=== PATIENT | female | born 1950 | race Caucasian/White ===

== ENCOUNTER 2016-07-17 05:25 | Inpatient (IN) | payer MEDICARE, OTHER ==
[~2016-07-17] VITALS: Ht 154.9 cm; Wt 93.3 kg
[~2016-07-17 05:25] MED LIST: ALPRAZOLAM0.5 MG PO; ASPIR-LOW81 MG PO; ASPIRIN E.C. 8181 MG PO; CHLORESTEROL MED; HCTZ 25MG25 MG PO; LIPITOR40 MG PO; LISINOPRIL/HCTZ1 TA2 PO; LISINOPRIL20 MG PO; MELATONIN 0.3MG; MELATONIN 0.3MG PO; NEXIUM40 MG PO; PHENERGAN 25 TA25 MG PO; PRAVASTATIN40 MG PO; PRINIVIL20 MG PO; PROTONIX 40MG T40 MG PO; WELCHOL625 MG PO; ZOCOR40 MG PO; ZOFRAN4 MG PO
[2016-07-17] MEDS ORDERED: NORVASC 5MG5 MG/TAB PO (05:35)
[2016-07-17] MEDS ORDERED: PROTONIX 40MG T40 MG PO (05:36)
[2016-07-17 05:53] LABS: BASO # 0.1 (0.0-0.2); BASO % 0.5 % (0.0-2.0); EOS # 0.1 (0.0-0.7); EOS % 0.7 % (0-4.0); GRAN % 86.8 % (42.2-75.2); HEMATOCRIT 41.2 % (37.0-47.0); HEMOGLOBIN 13.5 g/dl (12.5-16.0); LYMPH # 1.1 (1.2-3.4); LYMPH % 6.8 % (20.0-51.0); MEAN CELL VOLUME 84 fl (80.0-100.0); MEAN CORPUSCULAR HEMOGLOBIN 28 pg (27.0-31.0); MEAN CORPUSCULAR HGB CONC 33 g/dl (33.0-37.0); MEAN PLATELET VOLUME 9.3 fl (7.4-10.4); MONO # 0.8 (0.1-0.6); MONO % 4.8 % (1.7-9.3); PLATELET COUNT 285 K/mm3 (130-400); RED BLOOD COUNT 4.88 M/mm3 (4.10-5.30); WHITE BLOOD COUNT 16.1 K/mm3 (4.8-10.8)
[2016-07-17 06:03] LABS: CALCIUM 10.6 mg/dL (8.4-10.2); CREATININE, serum 0.9 mg/dL (0.52-1.25); POTASSIUM 3.9 mmol/L (3.4-5.0)
[2016-07-17 07:12] LABS: PH 6 (5-8); SQUAMOUS EPITHELIAL 0-2 /hpf; URINE APPEARANCE Clear; URINE BACTERIA None Seen /hpf; URINE BILIRUBIN Negative (NEGATIVE); URINE BLOOD Negative (NEGATIVE); URINE COLOR Yellow; URINE GLUCOSE Negative (NEGATIVE); URINE KETONE Negative (NEGATIVE); URINE RBC 0-2 /hpf; URINE UROBILINOGEN Negative (NEGATIVE); URINE WBC 0-2 /hpf
[2016-07-17 08:45] VITALS: BP 108/56; PULSE 84; TEMP 98.4
[2016-07-17 11:43] VITALS: BP 118/51; PULSE 91; TEMP 97.9
[2016-07-17 16:00] VITALS: BP 137/60; PULSE 92; TEMP 98.5
[2016-07-17 20:07] VITALS: BP 115/50; PULSE 86; TEMP 98.1
[2016-07-18 00:47] VITALS: BP 105/50; PULSE 92; TEMP 98.1
[2016-07-18 04:39] VITALS: BP 110/48; PULSE 91; TEMP 99.5
[2016-07-18 07:44] VITALS: BP 116/38; PULSE 86; TEMP 98.5
[2016-07-18 08:34] LABS: BASO % 0.2 % (0.0-2.0); EOS % 0.3 % (0-4.0); GRAN # 7.4 (1.4-6.5); GRAN % 83.4 % (42.2-75.2); LYMPH # 0.8 (1.2-3.4); LYMPH % 9.4 % (20.0-51.0); MEAN CELL VOLUME 85 fl (80.0-100.0); MEAN CORPUSCULAR HGB CONC 32 g/dl (33.0-37.0); MEAN PLATELET VOLUME 9.6 fl (7.4-10.4); MONO # 0.5 (0.1-0.6); MONO % 6.1 % (1.7-9.3); PLATELET COUNT 217 K/mm3 (130-400); RED BLOOD COUNT 3.92 M/mm3 (4.10-5.30); REDCELL DISTRIBUTION WIDTH-CV 14.3 % (11.5-14.5); WHITE BLOOD COUNT 8.8 K/mm3 (4.8-10.8)
[2016-07-18 08:37] LABS: HEMATOCRIT 33.3 % (37.0-47.0); HEMOGLOBIN 10.8 g/dl (12.5-16.0); MEAN CORPUSCULAR HEMOGLOBIN 28 pg (27.0-31.0)
[2016-07-18 13:52] VITALS: BP 123/45; PULSE 78; TEMP 98.3
[2016-07-18 16:08] VITALS: BP 126/37; PULSE 77; TEMP 98.2
[2016-07-18 19:58] VITALS: BP 108/48; PULSE 88; TEMP 99.6
[2016-07-19 00:16] VITALS: BP 109/41; PULSE 80; TEMP 99.7
[2016-07-19 03:11] VITALS: BP 105/81; PULSE 88; TEMP 99.3
[2016-07-19 07:26] VITALS: BP 127/62; PULSE 86; TEMP 98.2
[2016-07-19 11:35] VITALS: BP 132/49; PULSE 84; TEMP 98.5
[2016-07-19] MEDS ORDERED: LEVAQUIN 750MG750 M1 PO (14:07)
[2016-07-19] MEDS ORDERED: FLAGYL500 MG PO (14:08)
[2016-07-19 16:09] VITALS: BP 137/55; PULSE 72; TEMP 98.6
== END 2016-07-19 18:26 | disposition home or self-care (01) | DRG 872 ==
LOC: COL.ER 05:25 → MEDICAL 07:28
PROVIDERS: Emergency Medicine; Physician Assistant
DX: A41.9 Sepsis, unspecified organism (principal); K57.32 Diverticulitis of large intestine without perforation or abscess without bleeding; I10 Essential (primary) hypertension; F41.9 Anxiety disorder, unspecified; K21.9 Gastro-esophageal reflux disease without esophagitis; E78.5 Hyperlipidemia, unspecified; Z87.891 Personal history of nicotine dependence
CPT/HCPCS: 99223-AI; 99232-AI; 99239; J1650; J1956; J2060; J2270; J2405; J2765; J7030; Q9967

== ENCOUNTER → 2016-12-08 | Emergency (ER) | payer MEDICARE, OTHER ==
[~2016-12-08] VITALS: Ht 154.9 cm; Wt 87.7 kg
[~2016-12-08] MED LIST changes: +FLAGYL500 MG PO; +LEVAQUIN 750MG750 M1 PO; +NORVASC 5MG5 MG/TAB PO
[2016-12-08 20:28] VITALS: TEMP 98.3
[2016-12-08 21:53] VITALS: BP 122/58; PULSE 80
== END ==
LOC: COL.ER 20:23
DX: R60.0 Localized edema (principal); S70.12XA Contusion of left thigh, initial encounter; Z96.652 Presence of left artificial knee joint; Z79.01 Long term (current) use of anticoagulants; E78.5 Hyperlipidemia, unspecified; I10 Essential (primary) hypertension

== ENCOUNTER 2017-01-28 05:23 | Day surgery (SDC) | payer MEDICARE, OTHER ==
[~2017-01-28] VITALS: Ht 154.9 cm; Wt 90.0 kg
[~2017-01-28 05:23] MED LIST changes: +PRAVACHOL 40MG40 MG PO; -PRAVASTATIN40 MG PO
[2017-01-28 06:26] VITALS: BP 130/73; PULSE 93; TEMP 98
[2017-01-28] MEDS ORDERED: HCTZ 25MG TAB25 MG PO (06:34)
[2017-01-28] MEDS ORDERED: STOOL SOFTENER100 M2 PO (06:37)
[2017-01-28 07:35] VITALS: BP 145/60; PULSE 90; TEMP 97.4
[2017-01-28 07:50] VITALS: BP 143/64; PULSE 75
[2017-01-28 08:05] VITALS: BP 134/61; PULSE 66
== END 2017-01-28 09:00 | disposition home or self-care (01) ==
LOC: SDCO 05:23
DX: M24.662 Ankylosis, left knee (principal); Z96.652 Presence of left artificial knee joint; Z47.1 Aftercare following joint replacement surgery; I45.10 Unspecified right bundle-branch block; I48.91 Unspecified atrial fibrillation; I10 Essential (primary) hypertension; Z96.651 Presence of right artificial knee joint; Z87.891 Personal history of nicotine dependence; G47.33 Obstructive sleep apnea (adult) (pediatric); K21.9 Gastro-esophageal reflux disease without esophagitis; Z88.6 Allergy status to analgesic agent; Z88.5 Allergy status to narcotic agent; Z88.8 Allergy status to other drugs, medicaments and biological substances; E78.5 Hyperlipidemia, unspecified; E78.00 Pure hypercholesterolemia, unspecified; I45.2 Bifascicular block
CPT/HCPCS: J2704; J3010; J7120

== ENCOUNTER → 2018-04-03 | Outpatient (CLI) | payer MEDICARE, OTHER ==
[~2018-04-03] MED LIST changes: +HCTZ 25MG TAB25 MG PO; +STOOL SOFTENER100 M2 PO
== END ==
LOC: MC.RAD 12:50
DX: Z12.31 Encounter for screening mammogram for malignant neoplasm of breast (principal); Z78.0 Asymptomatic menopausal state; N64.89 Other specified disorders of breast

== ENCOUNTER → 2018-04-10 | Outpatient (CLI) | payer MEDICARE, OTHER | LOC: MC.RAD 13:00 | DX: N60.02 Solitary cyst of left breast (principal); N64.89 Other specified disorders of breast; Z78.0 Asymptomatic menopausal state | CPT/HCPCS: G0279 ==

== ENCOUNTER 2018-04-30 09:36 | Emergency (ER) | payer MEDICARE, OTHER ==
[~2018-04-30] VITALS: Ht 154.9 cm; Wt 101.8 kg
[2018-04-30 09:41] VITALS: TEMP 98.8
[2018-04-30] MEDS ORDERED: SYNTHROID0.05 MG/TA PO (09:58)
[2018-04-30 10:33] LABS: BASO # 0.1 (0.0-0.2); BASO % 0.5 % (0.0-2.0); EOS # 0.1 (0.0-0.7); EOS % 1.1 % (0-4.0); GRAN # 9.8 (1.4-6.5); GRAN % 80.6 % (42.2-75.2); HEMATOCRIT 38.4 % (37.0-47.0); HEMOGLOBIN 12.8 g/dl (12.5-16.0); LYMPH # 1.3 (1.2-3.4); LYMPH % 10.7 % (20.0-51.0); MEAN CELL VOLUME 85 fl (80.0-100.0); MEAN CORPUSCULAR HEMOGLOBIN 28 pg (27.0-31.0); MEAN CORPUSCULAR HGB CONC 33 g/dl (33.0-37.0); MEAN PLATELET VOLUME 8.6 fl (7.4-10.4); MONO # 0.8 (0.1-0.6); MONO % 6.8 % (1.7-9.3); PLATELET COUNT 278 K/mm3 (130-400); RED BLOOD COUNT 4.52 M/mm3 (4.10-5.30); REDCELL DISTRIBUTION WIDTH-CV 14.1 % (11.5-14.5)
[2018-04-30 11:00] LABS: ALBUMIN 4.2 gm/dL (3.5-5.0); BILIRUBIN,TOTAL 0.7 mg/dL (0.0-1.0); C-REACTIVE PROTEIN 5.2 mg/dL (0.0-0.9); CALCIUM 9.6 mg/dL (8.4-10.2); CREATININE, serum 0.81 mg/dL (0.52-1.25); POTASSIUM 3.8 mmol/L (3.4-5.0); TOTAL PROTEIN 7.9 gm/dL (6.4-8.2)
[2018-04-30 11:39] LABS: COLLECTION METHOD CLEAN CATCH
[2018-04-30 11:53] LABS: MUCOUS Present /lpf; PH 6 (5-8); SQUAMOUS EPITHELIAL 0-2 /hpf; URINE APPEARANCE Clear; URINE BACTERIA None Seen /hpf; URINE BILIRUBIN Negative (NEGATIVE); URINE BLOOD 1+ (NEGATIVE); URINE COLOR Yellow; URINE GLUCOSE Negative (NEGATIVE); URINE KETONE Negative (NEGATIVE); URINE LEUKOCYTE ESTERASE Negative (NEGATIVE); URINE NITRATE Negative (NEGATIVE); URINE PROTEIN(semi-quant) Negative (NEGATIVE); URINE RBC 0-2 /hpf; URINE UROBILINOGEN Negative (NEGATIVE)
[2018-04-30] MEDS ORDERED: BACTRIM DS 8001 TAB PO (14:08)
[2018-04-30] MEDS ORDERED: PERCOCET 325 MG1 TA2 PO (14:08)
[2018-04-30] MEDS ORDERED: FLAGYL500 MG PO (14:08)
[2018-04-30] MEDS ORDERED: ZOFRAN ODT4 MG PO (14:08)
[2018-04-30 14:39] VITALS: BP 122/67; PULSE 81
== END 2018-04-30 14:54 | disposition home or self-care (01) ==
LOC: COL.ER 09:36
PROVIDERS: Family Medicine
DX: K57.92 Diverticulitis of intestine, part unspecified, without perforation or abscess without bleeding (principal); E78.5 Hyperlipidemia, unspecified; Z87.442 Personal history of urinary calculi; Z90.49 Acquired absence of other specified parts of digestive tract; Z90.710 Acquired absence of both cervix and uterus; Z87.891 Personal history of nicotine dependence; Z88.6 Allergy status to analgesic agent
CPT/HCPCS: J2270; J2405; J7030; Q9967

== ENCOUNTER → 2022-04-13 | Outpatient (CLI) | payer MEDICARE, OTHER ==
[~2022-04-13] MED LIST changes: +BACTRIM DS 8001 TAB PO; +LEXAPRO20 MG PO; +PEPCID 20MG TAB20 MG PO; +PERCOCET 325 MG1 TA2 PO; +SINGULAIR 110 MG/TAB PO; +SYNTHROID0.05 MG/TA PO; +WELLBUTRIN XL150 MG PO; +ZOFRAN ODT4 MG PO
== END ==
LOC: MC.RAD 12:48
DX: Z12.31 Encounter for screening mammogram for malignant neoplasm of breast (principal); N63.20 Unspecified lump in the left breast, unspecified quadrant

== ENCOUNTER 2023-03-27 19:12 | Emergency (ER) | payer MEDICARE ==
[~2023-03-27] VITALS: Ht 154.9 cm; Wt 107.3 kg
[2023-03-27 19:18] VITALS: TEMP 98.2
[2023-03-27 19:41] LABS: BASO # 0.1 K/mm3 (0.0-0.2); BASO % 0.6 % (0.0-2.0); EOS # 0.3 K/mm3 (0.0-0.7); EOS % 2.2 % (0.0-4.0); GRAN # 9.4 K/mm3 (1.4-6.5); GRAN % 76.4 % (42.2-75.2); HEMATOCRIT 40.6 % (37.0-47.0); HEMOGLOBIN 13.4 g/dl (12.5-16.0); LYMPH # 1.8 K/mm3 (1.2-3.4); LYMPH % 14.3 % (20.0-51.0); MEAN CELL VOLUME 86 fl (80.0-100.0); MEAN CORPUSCULAR HEMOGLOBIN 28 pg (27-31); MEAN CORPUSCULAR HGB CONC 33 g/dl (33.0-37.0); MEAN PLATELET VOLUME 8.8 fl (7.4-10.4); MONO # 0.8 K/mm3 (0.1-0.6); MONO % 6.1 % (1.7-9.3); PLATELET COUNT 339 K/mm3 (130-400); RED BLOOD COUNT 4.75 M/mm3 (4.10-5.30); REDCELL DISTRIBUTION WIDTH-CV 13.8 % (11.5-14.5)
[2023-03-27] MEDS ORDERED: EFFEXOR XR37.5 MG/CA PO (19:54)
[2023-03-27] MEDS ORDERED: EFFEXOR XR75 MG/CAP PO (19:54)
[2023-03-27] MEDS ORDERED: ATARAX 25MG25 MG/TAB PO (19:56)
[2023-03-27] MEDS ORDERED: ZOFRAN ODT4 MG PO (19:57)
[2023-03-27] MEDS ORDERED: BENEFIBER (19:57)
[2023-03-27] MEDS ORDERED: COLACE 100100 MG/CAP PO (19:58)
[2023-03-27 20:00] LABS: ALBUMIN 4.2 gm/dL (3.4-4.8); BILIRUBIN,TOTAL 0.2 mg/dL (0.2-1.2); C-REACTIVE PROTEIN 0.63 mg/dL (0.00-0.50); CALCIUM 10.7 mg/dL (8.4-10.2); CREATININE, serum 1.04 mg/dL (0.57-1.11); POTASSIUM 3.5 mmol/L (3.5-4.5); TOTAL PROTEIN 8.2 gm/dL (6.2-8.1)
[2023-03-27] MEDS ORDERED: FLEXERIL5 MG PO (20:00)
[2023-03-27] MEDS ORDERED: PEPCID 20MG TAB20 MG PO (20:01)
[2023-03-27 20:07] LABS: TROPONIN-I 0.011 ng/mL (0.00-0.033)
[2023-03-27 20:11] LABS: INR 0.9 (0.8-3.0)
[2023-03-27 20:16] LABS: D-DIMER < 200.00 ng/mLDDu (200-230)
[2023-03-27 23:36] VITALS: BP 151/83; PULSE 80
== END 2023-03-27 23:36 | disposition home or self-care (01) ==
LOC: COL.ER 19:12
PROVIDERS: Nurse Practitioner Primary Care
DX: R07.89 Other chest pain (principal)
CPT/HCPCS: Q9967

== ENCOUNTER → 2023-08-08 | Outpatient (CLI) | payer MEDICARE ==
[~2023-08-08] MED LIST changes: +ATARAX 25MG25 MG/TAB PO; +BENEFIBER; +COLACE 100100 MG/CAP PO; +EFFEXOR XR37.5 MG/CA PO; +EFFEXOR XR75 MG/CAP PO; +FLEXERIL5 MG PO
== END ==
LOC: MC.RAD 08:00
DX: Z12.31 Encounter for screening mammogram for malignant neoplasm of breast (principal); N64.89 Other specified disorders of breast